=== PATIENT | female | born 1980 | race Caucasian/White ===

== ENCOUNTER 2018-11-20 19:22 | Emergency (ER) | payer MEDICAID ==
[~2018-11-20] VITALS: Ht 157.5 cm; Wt 50.0 kg
[2018-11-20 21:28] LABS: BASOPHILS % (AUTO) 0.7 % (0-1); EOSINOPHILS # (AUTO) 0.2 X10'3 (0-0.9); EOSINOPHILS % (AUTO) 2.7 % (0-6); HEMATOCRIT 37.2 % (35.0-45.0); HEMOGLOBIN 12.7 g/dl (12.0-16.0); LYMPHOCYTES # (AUTO) 1.8 X10'3 (1.1-4.8); LYMPHOCYTES % (AUTO) 27.2 % (21-51); MEAN CORPUSCULAR HEMOGLOBIN 32.5 PG (27.0-31.0); MEAN CORPUSCULAR HGB CONC 34.1 g/dL (33.0-36.5); MEAN CORPUSCULAR VOLUME 95.3 FL (78-98); MEAN PLATELET VOLUME 6.8 FL (7.4-10.4); MONOCYTES # (AUTO) 0.4 X10'3 (0-0.9); MONOCYTES % (AUTO) 5.4 % (2-12); NEUTROPHILS # (AUTO) 4.2 X10'3 (1.8-7.7); PLATELET COUNT 239 X10'3 (140-440); RED CELL DISTRIBUTION WIDTH 13.8 % (11.5-14.5); WHITE BLOOD COUNT 6.6 X10'3 (4.5-11.0)
[2018-11-20 21:33] LABS: ALANINE AMINOTRANSFERASE 30 U/L (12-78); ALBUMIN/GLOBULIN RATIO 0.9 (1.1-1.5); ALKALINE PHOSPHATASE 80 IU/L (46-116); ANION GAP 5 (8-16); ASPARTATE AMINO TRANSFERASE 19 U/L (10-37); BILIRUBIN,TOTAL 0.2 MG/DL (0.1-1.0); BLOOD UREA NITROGEN 21 MG/DL (7-18); BUN/CREATININE RATIO 31.8 (6.6-38.0); CALCIUM 8.6 MG/DL (8.5-10.1); CHLORIDE 106 MMOL/L (99-107); CREATININE 0.66 MG/DL (0.40-0.90); GLUCOSE 86 MG/DL (70-104); POTASSIUM 3.7 MMOL/L (3.5-5.1); SODIUM 143 MMOL/L (135-145); TOTAL CARBON DIOXIDE 32.2 MMOL/L (24-32); TOTAL PROTEIN 6.4 G/DL (6.4-8.2); eGFR > 90 ML/MIN
[2018-11-20 21:52] LABS: ETHANOL < 0.010 GM/DL (0.0-0.010)
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
--- NOTE | 2018-11-20 22:19 | NUR ---
pt provided urine sample, pt is laying on bed, in no apparent distress at this time.
[2018-11-20 22:24] LABS: URINE HCG NEGATIVE (NEG)
[2018-11-20 22:29] LABS: URINE AMPHETAMINE SCREEN POSITIVE (Neg); URINE BARBITUATE SCREEN NEGATIVE (Neg); URINE BENZODIAZEPINES SCREEN NEGATIVE (Neg); URINE CANNABINOID SCREEN POSITIVE (Neg); URINE COCAINE SCREEN NEGATIVE (Neg); URINE METHADONE SCREEN NEGATIVE (Neg); URINE OPIATE SCREEN POSITIVE (Neg); URINE PHENCYCLIDINE SCREEN NEGATIVE (Neg)
--- NOTE | 2018-11-20 23:51 | NUR ---
pt is asleep, instructed pt she could not pull covers over head. pt calm/cooperative.
--- NOTE | 2018-11-21 02:30 | NUR ---
Packet faxed to [facility]. Unable to confirm receipt of packet as [id number] hours.
--- NOTE | 2018-11-21 11:09 | NUR ---
pt resting on left side rr equal and unlabored eyes closed
[2018-11-21] MEDS ORDERED: ATI1T PO (12:52)
[2018-11-21] MEDS ORDERED: GABA600T13 PO (12:52)
[2018-11-21] MEDS ORDERED: NORT10CA81 PO (13:14)
[2018-11-21] MEDS ORDERED: VALP250C44 PO (13:14)
--- NOTE | 2018-11-21 13:20 | NUR ---
PT SITTING UP EATING LUNCH C/O ANXIEY, WILL MEDICATE WITH ATIVAN
--- NOTE | 2018-11-21 13:23 | NUR ---
Call recieved from pharmacy regarding Pt med rec. Meds updated, reviewed and signed by Dr. Torres. Updated med rec faxed to pharmacy.
[2018-11-21] MEDS: LORazepam 1 MG tablet PO PRN (13:34)
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
[2018-11-21] MEDS ORDERED: nicotine 14mg patch - 24hr TD ONE (19:45)
[2018-11-21] MEDS: nortriptyline 10mg capsule PO SCH (21:02)
[2018-11-21] MEDS: valproic acid 250mg capsule PO SCH (21:02)
--- NOTE | 2018-11-21 21:10 | NUR ---
Patient received her nicotine patch and night time medication. No distress observed. Continue to monitor.
--- NOTE | 2018-11-21 22:16 | NUR ---
breaking primary RN, pt is laying on her right side, eyes closed, appears to be sleeping, no s/s of agitation observed
--- NOTE | 2018-11-22 00:01 | NUR ---
Patient sleeping on left side. No distress observed. Continue to monitor.
[2018-11-22] MEDS: LORazepam 1 MG tablet PO PRN ×3 (01:26→19:17)
--- NOTE | 2018-11-22 01:28 | NUR ---
Patient got up and asked for Ativan for anxiety. Last dose was 11 hours ago. RN gave patient medication. Continue to monitor.
--- NOTE | 2018-11-22 02:53 | NUR ---
Patient sleeping supine. No distress observed. Continue to monitor.
--- NOTE | 2018-11-22 04:50 | NUR ---
Patient sleeping supine. No distress observed. Continue to monitor.
--- NOTE | 2018-11-22 07:00 | NUR ---
PT RESTING WITH EYES CLOSED, EFFORTLESS RESPIRATIONS OBSERVED.
[2018-11-22] MEDS: gabapentin 300mg capsule PO SCH (08:44)
--- NOTE | 2018-11-22 09:00 | NUR ---
PT REMAINS CALM AND COOPERATIVE AND IS WITHOUT NEEDS AT PRESENT TIME.
--- NOTE | 2018-11-22 14:00 | NUR ---
PT ATE LUNCH TRAY AND IS NOW RESTING.
--- NOTE | 2018-11-22 14:17 | NUR ---
PT SLEEPING IN POC.NO NEEDS AT THIS TIME. ATE ALL OF LUNCH.
[2018-11-22] MEDS: valproic acid 250mg capsule PO SCH (20:51)
[2018-11-22] MEDS: nortriptyline 10mg capsule PO SCH (20:51)
--- NOTE | 2018-11-22 21:09 | NUR ---
Pt states she continues to have suicidal thoughts, denies having a plan, states she has attempts in the past (hanging and jump off bridge). States no auditory or visual hallucinations at this time.
[2018-11-22] MEDS ORDERED: HYDROcodone/acetaminophen 5mg/325mg tablet PO ONE (21:25)
[2018-11-22] MEDS: hydrOXYzine 25 MG tablet PO PRN (21:36)
--- NOTE | 2018-11-23 01:31 | NUR ---
Pt's nicotine patch found in bathroom by this advertising copy writer. RN informed. Patched disposed of in appropriate container.
[2018-11-23] MEDS: gabapentin 300mg capsule PO SCH (08:45)
[2018-11-23] MEDS: LORazepam 1 MG tablet PO PRN ×2 (08:52→20:54)
[2018-11-23] MEDS ORDERED: ibuprofen tablet 400 MG TABLET PO ONE (09:20)
--- NOTE | 2018-11-23 11:20 | NUR ---
giving break to nurse lala,pt sleeping on her left side in bed ,no distress noted .will cont to monitor.
[2018-11-23] MEDS: hydrOXYzine 25 MG tablet PO PRN (16:28)
--- NOTE | 2018-11-23 17:32 | NUR ---
Mother Dylan's contact number [phone]
[2018-11-23] MEDS ORDERED: HYDROcodone/acetaminophen 5mg/325mg tablet PO ONE (17:50)
--- NOTE | 2018-11-23 18:15 | NUR ---
Received report from [facility]. Patient awake and alert on room air, in no apparent distress. In RN's view. Will continue to monitor.
[2018-11-23] MEDS: valproic acid 250mg capsule PO SCH (20:54)
[2018-11-23] MEDS: nortriptyline 10mg capsule PO SCH (20:54)
--- NOTE | 2018-11-23 21:40 | NUR ---
Patient denies any suidical thoughts or ideations.
--- NOTE | 2018-11-24 01:20 | NUR ---
Patient up to bathroom.
[2018-11-24 05:46] VITALS: BP 78/42
[2018-11-24] MEDS: gabapentin 300mg capsule PO SCH (08:24)
[2018-11-24] MEDS: LORazepam 1 MG tablet PO PRN (08:26)
--- NOTE | 2018-11-24 08:30 | NUR ---
PT EATING BREAKFAST WITH OUT ANY DIFFICULTY.
--- NOTE | 2018-11-24 11:54 | NUR ---
PT'S MOTHER CALLS BACK AND ASKS IF THE PT CAN STAY HERE ONE MORE DAY AND THEN GO BACK [facility] AND ATTEND THE[facility] PROGRAM. NOTIFY HER THAT [facility] WILL CALL HER BACK TO GET MORE INFO. [phone] YAMINI RAMIREZ.
--- NOTE | 2018-11-24 14:52 | NUR ---
PT ON THE PHONE WITH HER MOTHER WHO AGREES TO PAY FOR A [facility] [employer]. GIVE HER THE PHONE NUMBER FOR [facility] [address]. MOM WILL CALL BACK WHEN SHE HAS COMPLETED THE ARRANGEMENTS. PT WILL BE GIVEN A SACK LUNCH FOR DC PLUS A BUS PASS FOR TOMORROW TO GET TO [facility].
--- NOTE | 2018-11-24 15:19 | NUR ---
PT ASKING FOR RX FOR HER HOME MEDS TO TAKE WITH HER ON DC. NOTIFY DR DE LA TORRE WHO AGREES TO WRITE THEM. SACK LUNCH ARRIVES FOR PT TO TAKE WITH HER ON DC.
[2018-11-24] MEDS ORDERED: NORT10CA81 PO (15:20)
[2018-11-24] MEDS ORDERED: GABA600T PO (15:20)
[2018-11-24] MEDS ORDERED: HYDR-3686 PO (15:20)
[2018-11-24] MEDS ORDERED: VALP250C PO (15:20)
[2018-11-24] MEDS ORDERED: LORA0.5T PO (15:20)
--- NOTE | 2018-11-24 15:56 | NUR ---
PT IS GIVEN ALL HER BELONGINGS AND IS GETTING DRESSED. REVIEW DC INSTRUCTIONS AND RX. PT STATES SHE GETS HER RX FILLED AT [facility]. PT IS GIVEN 2 SACK LUNCHES AND A BUS PASS. SHOW PT OUT TO THE ER LOBBY. PT WANTS TO SMOKE FIRST AND THEN WILL COME BACK IN THE LOBBY TO WAIT FOR THE [facility]AX[facility]. [facility] IS CALLED FOR TRANSPORT. WILL BE HERE IN ABOUT 25MIN. PT GIVEN DIRECTIONS TO [facility] FROM THE [facility].
--- NOTE | 2018-11-24 17:30 | NUR ---
PT'S MOTHER CALLED AND ASKED IF THE PT HAD BEEN PICKED UP AND TAKEN TO THE [facility] PLANNED, PT HAD NOT REGISTERED OF YET. [employer] WAS CALLED AND STATED THAT THE PT WAS DROPPED OFF AT THE [facility] AT 1647. PT'S MOTHER WAS NOTIFIED.
== END 2018-11-24 16:07 | disposition home or self-care (01) ==
LOC: ER 19:23
DX: F32.9 Major depressive disorder, single episode, unspecified (principal); F15.90 Other stimulant use, unspecified, uncomplicated; R68.84 Jaw pain; F17.200 Nicotine dependence, unspecified, uncomplicated; Z88.0 Allergy status to penicillin; Z98.890 Other specified postprocedural states
CPT/HCPCS: 36415; 80053; 80305; 80320; 81025; 84443; 85025; 99285; Z7610

== ENCOUNTER 2019-01-31 18:47 | Emergency (ER) | payer MEDICAID ==
[~2019-01-31] VITALS: Ht 157.5 cm; Wt 54.5 kg
[~2019-01-31 18:47] MED LIST: ATI1T PO; GABA600T PO; GABA600T13 PO; NORT10CA81 PO; VALP250C PO; VALP250C44 PO
[2019-01-31] MEDS ORDERED: diphenhydrAMINE 25mg capsule PO ONE (18:55)
[2019-01-31] MEDS ORDERED: LORazepam 1 MG tablet PO ONE (19:00)
[2019-01-31] MEDS ORDERED: diphenhydrAMINE 50 mg/ml inj IV ONE (19:05)
[2019-01-31] MEDS ORDERED: LORazepam 2 mg/ml vial IV ONE (19:05)
[2019-01-31] MEDS ORDERED: methylPREDNISolone sod succ 125mg/2ml vial IV ONE (20:05)
[2019-01-31] MEDS ORDERED: normal saline 1000ML IV soln IVB ONE (20:05)
[2019-01-31 20:24] LABS: BASOPHILS # (AUTO) 0.1 X10'3 (0-0.2); BASOPHILS % (AUTO) 0.6 % (0-1); EOSINOPHILS # (AUTO) 0.1 X10'3 (0-0.9); EOSINOPHILS % (AUTO) 0.5 % (0-6); HEMATOCRIT 43.4 % (35.0-45.0); HEMOGLOBIN 14.9 g/dl (12.0-16.0); LYMPHOCYTES # (AUTO) 1.7 X10'3 (1.1-4.8); LYMPHOCYTES % (AUTO) 13.4 % (21-51); MEAN CORPUSCULAR HEMOGLOBIN 32.4 PG (27.0-31.0); MEAN CORPUSCULAR HGB CONC 34.4 g/dL (33.0-36.5); MEAN CORPUSCULAR VOLUME 94.2 FL (78-98); MEAN PLATELET VOLUME 8.1 FL (7.4-10.4); MONOCYTES # (AUTO) 1.3 X10'3 (0-0.9); MONOCYTES % (AUTO) 9.7 % (2-12); NEUTROPHILS # (AUTO) 9.8 X10'3 (1.8-7.7); NEUTROPHILS % (AUTO) 75.8 % (42-75); PLATELET COUNT 251 X10'3 (140-440); RED BLOOD COUNT 4.61 X10'6 (4.20-5.60); RED CELL DISTRIBUTION WIDTH 13.4 % (11.5-14.5); WHITE BLOOD COUNT 12.9 X10'3 (4.5-11.0)
[2019-01-31 20:36] LABS: ALBUMIN 4.1 G/DL (3.4-5.0); ANION GAP 8 (8-16); BILIRUBIN,TOTAL 0.2 MG/DL (0.1-1.0); BLOOD UREA NITROGEN 10 MG/DL (7-18); BUN/CREATININE RATIO 11.9 (6.6-38.0); CALCIUM 9.2 MG/DL (8.5-10.1); CHLORIDE 102 MMOL/L (99-107); CREATININE 0.84 MG/DL (0.40-0.90); GLUCOSE 93 MG/DL (70-104); POTASSIUM 3.6 MMOL/L (3.5-5.1); SODIUM 138 MMOL/L (135-145); TOTAL CARBON DIOXIDE 27.6 MMOL/L (24-32); TOTAL PROTEIN 7.8 G/DL (6.4-8.2); eGFR 76 ML/MIN
[2019-01-31 20:37] LABS: ALANINE AMINOTRANSFERASE 14 U/L (12-78); ALBUMIN/GLOBULIN RATIO 1.1 (1.1-1.5); ALKALINE PHOSPHATASE 76 IU/L (46-116); ASPARTATE AMINO TRANSFERASE 15 U/L (10-37)
[2019-01-31] MEDS ORDERED: iohexol 300mg/ml 100ml inj. ONE (20:37)
[2019-01-31] MEDS ORDERED: ondansetron/PF 4mg/2ml inj IV ONE (22:20)
[2019-01-31] MEDS ORDERED: morphine 4 MG/ML inj SYRINge IV ONE (22:20)
[2019-01-31 22:55] LABS: URINE HCG NEGATIVE (NEG)
[2019-01-31 23:03] LABS: URINE AMPHETAMINE SCREEN NEGATIVE (Neg); URINE BARBITUATE SCREEN NEGATIVE (Neg); URINE BENZODIAZEPINES SCREEN NEGATIVE (Neg); URINE CANNABINOID SCREEN NEGATIVE (Neg); URINE COCAINE SCREEN NEGATIVE (Neg); URINE METHADONE SCREEN NEGATIVE (Neg); URINE OPIATE SCREEN NEGATIVE (Neg); URINE PHENCYCLIDINE SCREEN NEGATIVE (Neg)
--- NOTE | 2019-01-31 23:04 | NUR ---
IV site bleeding and not flushing, tegaderm removed and catheter re-adjusted and retaped, flushing well.
[2019-02-01] MEDS ORDERED: morphine 4 MG/ML inj SYRINge IV ONE
[2019-02-01] MEDS ORDERED: LORazepam 2 mg/ml vial IV ONE ×2 (01:10→04:20)
[2019-02-01] MEDS ORDERED: diatrozoate meglu/diatrozoate sod (37% iodine) 120ML oral solution RC ONE (01:40)
[2019-02-01] MEDS ORDERED: diatr meglu/diatrizoate 30ml oral sol.-(3 dose) bottle PO ONE (01:55)
--- NOTE | 2019-02-01 02:49 | NUR ---
Gastrografin adminstered by radiology at time of study.
[2019-02-01] MEDS ORDERED: barium sulfate 450ml oral suspension PO ONE (03:40)
[2019-02-01] MEDS ORDERED: diatrozoate meglu/diatrozoate sod (37% iodine) 120ML oral solution PO ONE (03:40)
[2019-02-01] MEDS ORDERED: normal saline 1000ML IV soln IV ONE (05:05)
[2019-02-01] MEDS ORDERED: piperacillin/tazo 3.375gm/50ml 50 ML IV ONE (05:05)
--- NOTE | 2019-02-01 05:18 | NUR ---
contrast administered in GI
--- NOTE | 2019-02-01 05:42 | NUR ---
Pt asymptomatic for reaction to Zosyn.
[2019-02-01 05:45] VITALS: BP 94/42
--- NOTE | 2019-02-01 06:30 | NUR ---
report called to ER at [facility], [facility] arrived to transport patient. Pt to run NS bolus during transfer.
== END 2019-02-01 06:46 | disposition short-term general hospital (02) ==
LOC: ER 18:48
DX: J98.2 Interstitial emphysema (principal); R11.10 Vomiting, unspecified; J02.9 Acute pharyngitis, unspecified; M54.2 Cervicalgia; R00.0 Tachycardia, unspecified; Z98.890 Other specified postprocedural states; Z88.0 Allergy status to penicillin; Z79.899 Other long term (current) drug therapy
CPT/HCPCS: 36415; 70490; 70491; 71046; 71250; 74220; 80053; 80305; 81025; 85025; 87081; 87880; 93005; 96361; 96365; 96375; 96376; 99284; J1200; J2060; J2270; J2405; J2543; J2930; J7030; Q9963; Q9967

== ENCOUNTER 2019-03-04 13:41 | Emergency (ER) | payer MEDICAID ==
[~2019-03-04] VITALS: Ht 157.5 cm; Wt 58.6 kg
[2019-03-04] MEDS ORDERED: nortriptyline 10mg capsule PO STA (15:03)
[2019-03-04] MEDS ORDERED: temazepam 15mg capsule PO ONE (15:05)
[2019-03-04] MEDS ORDERED: hydrOXYzine 25 MG tablet PO ONE (15:05)
[2019-03-04] MEDS ORDERED: NORT10CA5 PO (15:09)
[2019-03-04] MEDS ORDERED: HYDR-3686 PO (15:09)
[2019-03-04 15:37] VITALS: BP 130/80
== END 2019-03-04 15:40 | disposition home or self-care (01) ==
LOC: ER 13:41
DX: F32.9 Major depressive disorder, single episode, unspecified (principal); G47.00 Insomnia, unspecified; Z98.890 Other specified postprocedural states; Z88.0 Allergy status to penicillin; Z79.899 Other long term (current) drug therapy
CPT/HCPCS: 99284; Z7610